=== PATIENT | female | born 1955 | race Caucasian/White ===

== ENCOUNTER → 2021-08-19 | Outpatient (CLI) | payer MEDICARE ==
[~2021-08-19] MED LIST: ACET-687 PO; ASPI-485 PO
--- NOTE | 2021-08-19 12:09 | DIREP ---
PROCEDURE:BONE DENSITY PERIPHERAL INDICATIONS:ASYMPTOMATIC MENOPAUSAL STATE COMPARISON:[facility], , BONE DENSITY PERIPHERAL, 12/29/2018, 11:03 AM. FINDINGS: Femur Proximal RIGHT femur bone mineral density (BMD) (g/cm2): 0.753 T-score : -2.0 Proximal LEFT femur bone mineral density (BMD) (g/cm2): 0.776T-score: -1.8 Lumbar Lumbar bone mineral density (BMD) (g/cm2): 0.924T-score : -2.2 Imaging- No significant findings CONCLUSION: 1. Osteopenia overall lumbar spine, left hip and right hip. 2. Based on the Sil FRAX study, the patient's 10-year probability of a major osteoporotic fracture (clinical spine, forearm, hip or shoulder) is 21.2 %, and the 10-year probability of a hip fracture is 4.6%. SUGGESTED RECOMMENDATIONS: Normal & Osteopenia:Consideration should be given to use of calcium supplementation, daily multiple vitamins and adequate exercise, as preventive measures against osteoporosis, if clinically indicated. Osteoporosis & Severe Osteoporosis:In addition to the above, consideration should be given to medical therapy against osteoporosis, if clinically indicated. Dictated by: Yunier Brown M.D. on 08/19/2021 at 12:04 PM
--- NOTE | 2021-08-19 15:23 | DIREP ---
PROCEDURE:Digital Screening Mammogram TECHNIQUE:MLO and CC digital images of each breast are provided. Push-pull implant views are also provided. Computer Assisted Detection (CAD) was utilized. COMPARISON:None. INDICATIONS:SCREENING BREAST COMPOSITION:Extremely dense, which lowers the sensitivity of mammography. FINDINGS:There are no grouped microcalcifications, masses, or architectural distortions to suggest malignancy. Bilateral breast implants are noted, and they appear to be ruptured as evidenced by focal bulging along the medial aspect bilaterally the superior aspect of the left breast tissue. Capsular calcifications are noted.. IMPRESSION:No mammographic evidence of malignancy. RECOMMENDATIONS:Annual Screening Mammography per [employer] guidelines. OVERALL FINAL ASSESSMENT:BI-RADS 1 - Negative Mammogram Note: This facility participates in a mammography screening patient reminder system. Dictated by: Loi Feliz MD on 08/19/2021 at 03:19 PM
== END | disposition home or self-care (01) ==
LOC: RAD 08:34
PROVIDERS: ATTEND Nurse Practitioner Family
DX: Z12.31 Encounter for screening mammogram for malignant neoplasm of breast (principal); Z78.0 Asymptomatic menopausal state; M85.88 Other specified disorders of bone density and structure, other site
CPT/HCPCS: 77067; 77080

== ENCOUNTER → 2021-11-20 | Outpatient (CLI) | payer MEDICARE ==
--- NOTE | 2021-11-20 12:34 | DIREP ---
PROCEDURE:CHEST 2 VIEWS COMPARISON:[facility], CR, XRAY CHEST 2 VWS, 04/19/2017, 01:48 PM. INDICATIONS:R05.3 CHRONIC COUGH FINDINGS: LUNGS/PLEURA:No significant pulmonary parenchymal abnormalities. No effusions. VASCULATURE:Normal. Unremarkable pulmonary vasculature. CARDIAC:Normal. No cardiac silhouette abnormality or cardiomegaly. MEDIASTINUM:Normal. No visible mass or adenopathy. BONES:Normal. No fracture or visible bony lesion. OTHER:Bilateral peripherally calcified breast prostheses. CONCLUSION:Stable chest without acute cardiopulmonary abnormality. Dictated by: Baltazar Hirsch M.D. on 11/20/2021 at 12:32 PM
== END | disposition home or self-care (01) ==
LOC: RAD 11:23
PROVIDERS: ATTEND Nurse Practitioner Family
DX: R05.3 Chronic cough (principal)
CPT/HCPCS: 71046